=== PATIENT | female | born 1945 | race Caucasian/White ===

== ENCOUNTER → 2016-05-12 | Outpatient (CLI) | payer BC ==
[~2016-05-12] MED LIST: BNC/40 PO; BROM0.07 OPL; MULT-506 PO; PRED1SUS3 OPL; PRT/20 PO; TRIATAB3 PO
[2016-05-12 10:23] LABS: BASO % 0.3 %; BASO ABS # 0.02 K/uL (0-0.2); COMPLETE YES; EOS % 2.3 %; HEMATOCRIT 38.7 % (37-47); IG% 0.9 %; LYMPH % 22.1 %; LYMPH ABS # 1.42 K/uL (1.2-3.4); MEAN CELL VOLUME 90.6 fL (80-100); MEAN CORPUSCULAR HEMOGLOBIN 30.7 pg (25-34); MEAN CORPUSCULAR HGB CONC 33.9 g/dl (32-36); MEAN PLATELET VOLUME 9.9 fL (7.4-10.4); NEUT % 65.4 %; PLATELET COUNT 272 K/uL (130-400); RED BLOOD COUNT 4.27 M/uL (4.2-5.4); WHITE BLOOD COUNT 6.43 K/uL (4.8-10.8)
[2016-05-12 10:46] LABS: ALT/SGPT 30 U/L (12-78); AST/SGOT 28 U/L (15-37); BLOOD UREA NITROGEN 29 mg/dl (7-18); BUN/CREATININE RATIO 23.9 (10-20); CALCIUM 10.3 mg/dl (8.5-10.1); CARBON DIOXIDE 27 mmol/L (21-32); CHLORIDE 104 mmol/L (98-107); GLUCOSE 83 mg/dl (70-99); MAGNESIUM 1.7 mg/dl (1.8-2.4); POTASSIUM 4.1 mmol/L (3.5-5.1); SODIUM 142 mmol/L (136-145)
[2016-05-12 11:59] LABS: ALB/GLOB RATIO 1.2 (0.9-2); ALKALINE PHOSPHATASE 53 U/L (45-117); CHOLESTEROL 202 mg/dl (0-200); CHOLESTEROL/HDL RATIO 3.7; HDL CHOLESTEROL 54 mg/dl; LDL CHOLESTEROL CALCULATED 115 mg/dl; TRIGLYCERIDES 165 mg/dl (0-150); VERY LOW DENSITY LIPOPROT CALC 33 mg/dl
== END | disposition home or self-care (01) ==
LOC: C.LAB 08:56
PROVIDERS: ATTEND Nurse Practitioner Family
DX: I10 Essential (primary) hypertension (principal); M85.80 Other specified disorders of bone density and structure, unspecified site; K21.0 Gastro-esophageal reflux disease with esophagitis; E78.00 Pure hypercholesterolemia, unspecified

== ENCOUNTER → 2016-09-06 | Day surgery (SDC) | payer BC ==
[2016-08-05 13:38] VITALS: Ht 165.1 cm; Wt 68.2 kg
[~2016-09-06] VITALS: Ht 165.1 cm; Wt 68.2 kg
[~2016-09-06] MED LIST changes: +500ML BSS 0.3ML EPI 1:1000PF IRRIG ONE; +ACETAMINOPHEN 325 MG TAB PO PRN; +AMVISC PLUS 0.8ML SYRINGE INT OCU ONE; +BSS FLUSH ONE; +EpINEphrine INJ 1MG/ML AMP 1 MG/ML AMP ONE; +LACTATED RINGER'S 1000ML 500 ML IV SCH; +LIDOCAINE 3.5% OPH GEL PER APPLICATION CHARGE ONE; +LIDOCAINE HCL 1% MPF 2 ML VIAL ONE; +MIDAZOLAM HCL 1 MG/ML 2ML VIAL ONE; +OCUCOAT 1 ML SOLN IO ONE; +POVIDONE-IODINE OP SOLN 30 ML BTL ONE; +PROPARACAINE 0.5% OP SOLN PER DROP CHARGE OPL SCH; +TOBRAMYCIN/DEXAMETHASONE OPH OINT PER APPLN CHARGE ONE
[2016-09-06] MEDS: PHENYLEPHRINE HCL 2.5% OP SOLN PER DROP CHARGE OPL SCH ×2 (07:34→07:39)
[2016-09-06] MEDS: TROPICAMIDE 1% OP SOLN PER DROP CHARGE OPL SCH ×2 (07:35→07:39)
[2016-09-06] MEDS: CYCLOPENTOLATE HCL 1% OP SOLN PER DROP CHARGE OPL SCH ×2 (07:36→07:40)
[2016-09-06] MEDS: KETOROLAC 0.5% OP SOLN PER DROP CHARGE OPL SCH ×2 (07:36→07:41)
[2016-09-06] MEDS: GATIFLOXACIN OP SOLN PER DROP CHARGE OPL SCH ×2 (07:37→07:47)
--- NOTE | 2016-09-06 07:47 | History & Physical Bridge - [place] ---
H&P Re-Evaluation Bridge Note: I have examined the patient, reviewed the History & Physical and in the interval since the performance of the History & Physical I have noted the following changes of clinical significance: No changes noted
--- NOTE | 2016-09-06 08:29 | Discharge Instructions-SurgCtr ---
Discharge Instructions Date of Service September 06, 2016. Visit Reason for Visit: Cataract Left Eye Discharge Discharge Diagnosis / Problem: cataract Discharge Goals Goal(s): Improve function Activity Recommendations Activity Limitations: per Instructions/Follow-up section Anesthesia . Post Anesthesia Instructions: If you have had General Anesthesia or IV Sedation: * Do not drive today. * Resume driving when surgeon permits. * Do not make important decisions or sign legal documents today. * Call surgeon for: 1. Temperature elevations greater than 101 degrees F. 2. Uncontrollable pain. 3. Excessive bleeding. 4. Persistent nausea and vomiting. 5. Medication intolerance (nausea, vomiting or rash). * For nausea and vomiting use only clear liquids such as: tea, soda, bouillon until nausea subsides, then gradually increase diet as tolerated. * If you have any concerns or questions, call your surgeon's office. If physician is unavailable and it is an emergency, call 911 or go to the nearest emergency room. . Instructions / Follow-Up Instructions / Follow-Up ACTIVITY RECOMMENDATIONS: * No strenuous lifting, jogging or running for 4 days * No swimming or yard work for 1 week. * Limited bending is permitted, such as putting on shoes. RETURN TO SCHOOL/WORK: No work until seen by physician in office. MEDICATIONS: Resume previous medications unless instructed otherwise by your surgeon. This includes eye drops for glaucoma. Zymaxid/Gatifloxacin (shields cap) - one drop every 2 hours until bedtime Nevanac/Ilevro/Prolensa/Ketorolac (marti cap) - one drop every 4 hours until bedtime Prednisolone (white/pink cap, SHAKE WELL) - one drop every 2 hours until bedtime Starting tomorrow - all 3 drops every 4 hours until seen in the office Optive drops - as needed for discomfort SPECIAL CARE INSTRUCTIONS: * Wear eyeshield when sleeping, for four nights. * You may wear your own glasses or sunglasses while awake. * You may read or watch TV * You may shower and wash your face, but be gentle around the eye and pat dry. * Blurry vision and mild irritation are normal. * Call office if pain is more severe or vision becomes dark at . FOLLOW UP VISIT: Follow-up with Dr Solomon tomorrow. Diet Recommendations Home Diet: resume previous diet Procedures Procedures Performed: Left Cataract Phacoemulsification With Intraocular Lens Implant Pending Studies Studies pending at discharge: no Medical Emergencies . Who to Call and When: Medical Emergencies: If at any time you feel your situation is an emergency, please call 911 immediately. . Non-Emergent Contact Non-Emergency issues call your: Spinning Operator . . "Provider Documentation" section prepared by Hector Solomon. .
--- NOTE | 2016-09-06 08:29 | [facility] Operative Report ---
Operative Report Date of Service September 06, 2016. Operative Report 1. PREOPERATIVE DIAGNOSIS: Cataract of the left eye. 2. POSTOPERATIVE DIAGNOSIS: Same. 3. PROCEDURE: Phacoemulsification with intraocular lens implantation of the left eye. SURGEON: Dr. Hector Solomon. ANESTHESIA: Topical Lidocaine gel, 1% Non- Preserved intracameral Lidocaine, and monitored intravenous sedation. INDICATIONS FOR THE PROCEDURE: The patient is a 70 - year-old female with a history of cataract of the left eye causing significant visual impairment. The details of the proposed procedure were explained to the patient who asked appropriate questions and following discussion of all risks, benefits and alternatives agreed to have the procedure done. 4. OPERATION AND FINDINGS: DESCRIPTION OF PROCEDURE: After informed consent was obtained, the patient was brought to the Operating Room at the [facility]. The patient was placed in a supine position and then the left eye was prepped and draped in the usual sterile fashion for intraocular surgery. A drop of topical Lidocaine gel was placed in the operative eye. A wire lid speculum was then placed in the fornices. A corneal paracentesis was then created temporally. The Non-Preserved Lidocaine was then instilled into the anterior chamber. The anterior chamber was then pressurized with viscoelastic. A 2.0 mm clear corneal incision was then created temporally. A cystotome was inserted into the anterior chamber and used to create a tear in the anterior lens capsule. This capsular tear was then used to create a small flap and the flap was dragged in a counterclockwise direction in order to create a continuous curvilinear capsulorrhexis. Hydrodissection was accomplished with balanced salt solution. Phacoemulsification of the lens nucleus was then performed in a standard [id number]-xaxprmo technique. The phaco time was 22 seconds with an average power of 9 %. The remaining cortical material was removed using irrigation aspiration. The capsular bag was then filled with viscoelastic. A [employer]ch [employer] Lomb MI60L +20.5 diopters lens was then loaded into the injector and injected into the capsular bag. The remaining viscoelastic was removed with the irrigation aspiration handpiece. The wound was hydrated and then checked and found to be watertight. The intraocular pressure was checked and found to be adequate. The wire lid speculum was removed and the patient's face was cleaned and dried. TobraDex ointment was placed in the inferior fornix. The patient was discharged to the Recovery Room having tolerated the procedure well. There were no complications. The patient will be seen tomorrow in the office for follow-up. I attest to the content of the Intraoperative Record and any orders documented therein. Any exceptions are noted below.
[2016-09-06 08:30] VITALS: TEMP 36.8
--- NOTE | 2016-09-06 08:47 | Anesthesia Progress Nt - [facility] ---
Anesthesia Post Op Note Date & Time September 06, 2016 at 08:47 Vital Signs Pain Intensity: 0 Vital Signs Past 12 Hours Date Time Temp Pulse Resp B/P Pulse Ox O2 Delivery O2 Flow Rate FiO2 09/06/16 08:30 36.8 76 24 108/70 96 Room Air 09/06/16 07:22 36.6 77 16 112/72 98 Room Air Notes Mental Status: alert / awake / arousable, participated in evaluation Pt Amnestic to Procedure: No (recall as expected) Nausea / Vomiting: adequately controlled Pain: adequately controlled Airway Patency, RR, SpO2: stable & adequate BP & HR: stable & adequate Hydration State: stable & adequate Anesthetic Complications: no major complications apparent Pt doing well.
[2016-09-06 08:51] VITALS: BP 101/66; PULSE 80; O2SAT 97
== END | disposition home or self-care (01) ==
LOC: X.SURG 07:14
PROVIDERS: ATTEND Ophthalmology
DX: H26.9 Unspecified cataract (principal); K21.0 Gastro-esophageal reflux disease with esophagitis; K44.9 Diaphragmatic hernia without obstruction or gangrene; E78.00 Pure hypercholesterolemia, unspecified; I10 Essential (primary) hypertension; M85.80 Other specified disorders of bone density and structure, unspecified site

== ENCOUNTER → 2016-09-27 | Day surgery (SDC) | payer BC ==
[2016-09-20 10:56] VITALS: Ht 165.1 cm; Wt 68.2 kg
[~2016-09-27] VITALS: Ht 165.1 cm; Wt 68.2 kg
[~2016-09-27] MED LIST changes: +ATROPINE SULFATE 0.1 MG/ML 5ML SYR IV PRN; +EpHEDrine SULFATE INJ 50 MG/ML AMP IV PRN; -PROPARACAINE 0.5% OP SOLN PER DROP CHARGE OPL SCH; +PROPARACAINE 0.5% OP SOLN PER DROP CHARGE OPR SCH
[2016-09-27] MEDS: PHENYLEPHRINE HCL 2.5% OP SOLN PER DROP CHARGE OPR SCH ×2 (07:52→07:57)
[2016-09-27] MEDS: TROPICAMIDE 1% OP SOLN PER DROP CHARGE OPR SCH ×2 (07:53→07:58)
[2016-09-27] MEDS: CYCLOPENTOLATE HCL 1% OP SOLN PER DROP CHARGE OPR SCH ×2 (07:54→07:59)
[2016-09-27] MEDS: KETOROLAC 0.5% OP SOLN PER DROP CHARGE OPR SCH ×2 (07:55→08:00)
[2016-09-27] MEDS: GATIFLOXACIN OP SOLN PER DROP CHARGE OPR SCH ×2 (07:56→08:06)
--- NOTE | 2016-09-27 08:59 | [facility] Operative Report ---
Operative Report Date of Service September 27, 2016. Operative Report 1. PREOPERATIVE DIAGNOSIS: Cataract of the right eye. 2. POSTOPERATIVE DIAGNOSIS: Same. 3. PROCEDURE: Phacoemulsification with intraocular lens implantation of the right eye. SURGEON: Dr. Hector Solomon. ANESTHESIA: Topical Lidocaine gel, 1% Non- Preserved intracameral Lidocaine, and monitored intravenous sedation. INDICATIONS FOR THE PROCEDURE: The patient is a 71 - year-old female with a history of cataract of the right eye causing significant visual impairment. The details of the proposed procedure were explained to the patient who asked appropriate questions and following discussion of all risks, benefits and alternatives agreed to have the procedure done. 4. OPERATION AND FINDINGS: DESCRIPTION OF PROCEDURE: After informed consent was obtained, the patient was brought to the Operating Room at the [facility]. The patient was placed in a supine position and then the right eye was prepped and draped in the usual sterile fashion for intraocular surgery. A drop of topical Lidocaine gel was placed in the operative eye. A wire lid speculum was then placed in the fornices. A corneal paracentesis was then created temporally. The Non-Preserved Lidocaine was then instilled into the anterior chamber. The anterior chamber was then pressurized with viscoelastic. A 2.0 mm clear corneal incision was then created temporally. A cystotome was inserted into the anterior chamber and used to create a tear in the anterior lens capsule. This capsular tear was then used to create a small flap and the flap was dragged in a counterclockwise direction in order to create a continuous curvilinear capsulorrhexis. Hydrodissection was accomplished with balanced salt solution. Phacoemulsification of the lens nucleus was then performed in a standard [id number] technique. The phaco time was 24 seconds with an average power of 9 %. The remaining cortical material was removed using irrigation aspiration. The capsular bag was then filled with viscoelastic. A Bausch [employer] Lomb MI60L +19.5 diopters lens was then loaded into the injector and injected into the capsular bag. The remaining viscoelastic was removed with the irrigation aspiration handpiece. The wound was hydrated and then checked and found to be watertight. The intraocular pressure was checked and found to be adequate. The wire lid speculum was removed and the patient's face was cleaned and dried. TobraDex ointment was placed in the inferior fornix. The patient was discharged to the Recovery Room having tolerated the procedure well. There were no complications. The patient will be seen tomorrow in the office for follow-up. I attest to the content of the Intraoperative Record and any orders documented therein. Any exceptions are noted below.
--- NOTE | 2016-09-27 08:59 | Discharge Instructions-SurgCtr ---
Discharge Instructions Date of Service September 27, 2016. Visit Reason for Visit: Cataract Right Eye Discharge Discharge Diagnosis / Problem: cataract Discharge Goals Goal(s): Improve function Activity Recommendations Activity Limitations: per Instructions/Follow-up section Anesthesia . Post Anesthesia Instructions: If you have had General Anesthesia or IV Sedation: * Do not drive today. * Resume driving when surgeon permits. * Do not make important decisions or sign legal documents today. * Call surgeon for: 1. Temperature elevations greater than 101 degrees F. 2. Uncontrollable pain. 3. Excessive bleeding. 4. Persistent nausea and vomiting. 5. Medication intolerance (nausea, vomiting or rash). * For nausea and vomiting use only clear liquids such as: tea, soda, bouillon until nausea subsides, then gradually increase diet as tolerated. * If you have any concerns or questions, call your surgeon's office. If physician is unavailable and it is an emergency, call 911 or go to the nearest emergency room. . Instructions / Follow-Up Instructions / Follow-Up ACTIVITY RECOMMENDATIONS: * No strenuous lifting, jogging or running for 4 days * No swimming or yard work for 1 week. * Limited bending is permitted, such as putting on shoes. RETURN TO SCHOOL/WORK: No work until seen by physician in office. MEDICATIONS: Resume previous medications unless instructed otherwise by your surgeon. This includes eye drops for glaucoma. Zymaxid/Gatifloxacin (shields cap) - one drop every 2 hours until bedtime Nevanac/Ilevro/Prolensa/Ketorolac (marti cap) - one drop every 4 hours until bedtime Prednisolone (white/pink cap, SHAKE WELL) - one drop every 2 hours until bedtime Starting tomorrow - all 3 drops every 4 hours until seen in the office Optive drops - as needed for discomfort SPECIAL CARE INSTRUCTIONS: * Wear eyeshield when sleeping, for four nights. * You may wear your own glasses or sunglasses while awake. * You may read or watch TV * You may shower and wash your face, but be gentle around the eye and pat dry. * Blurry vision and mild irritation are normal. * Call office if pain is more severe or vision becomes dark at . FOLLOW UP VISIT: Follow-up with Dr Solomon tomorrow. Diet Recommendations Home Diet: resume previous diet Procedures Procedures Performed: Right Cataract Phacoemulsification With Intraocular Lens Implant Pending Studies Studies pending at discharge: no Medical Emergencies . Who to Call and When: Medical Emergencies: If at any time you feel your situation is an emergency, please call 911 immediately. . 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 . "Provider Documentation" section prepared by Hector Solomon. .
[2016-09-27 09:00] VITALS: TEMP 36.7
--- NOTE | 2016-09-27 09:14 | Anesthesia Progress Nt - [facility] ---
Anesthesia Post Op Note Date & Time September 27, 2016 at 09:14 Vital Signs Pain Intensity: 0 Vital Signs Past 12 Hours Date Time Temp Pulse Resp B/P Pulse Ox O2 Delivery O2 Flow Rate FiO2 09/27/16 09:00 36.7 76 16 102/68 94 Room Air 09/27/16 07:45 36.9 75 16 117/76 97 Room Air Notes Mental Status: alert / awake / arousable, participated in evaluation Pt Amnestic to Procedure: Yes Nausea / Vomiting: adequately controlled Pain: adequately controlled Airway Patency, RR, SpO2: stable & adequate BP & HR: stable & adequate Hydration State: stable & adequate Anesthetic Complications: no major complications apparent
[2016-09-27 09:25] VITALS: BP 108/76; PULSE 67; O2SAT 97
== END | disposition home or self-care (01) ==
LOC: X.SURG 07:37
PROVIDERS: ATTEND Ophthalmology
DX: H26.9 Unspecified cataract (principal); I10 Essential (primary) hypertension; E78.00 Pure hypercholesterolemia, unspecified; E83.42 Hypomagnesemia; E83.52 Hypercalcemia; K21.0 Gastro-esophageal reflux disease with esophagitis; K44.9 Diaphragmatic hernia without obstruction or gangrene; M85.80 Other specified disorders of bone density and structure, unspecified site; Z78.0 Asymptomatic menopausal state; Z79.899 Other long term (current) drug therapy

== ENCOUNTER → 2016-10-27 | Outpatient (CLI) | payer BC ==
[~2016-10-27] MED LIST changes: -500ML BSS 0.3ML EPI 1:1000PF IRRIG ONE; -ACETAMINOPHEN 325 MG TAB PO PRN; -AMVISC PLUS 0.8ML SYRINGE INT OCU ONE; -ATROPINE SULFATE 0.1 MG/ML 5ML SYR IV PRN; -BSS FLUSH ONE; -EpHEDrine SULFATE INJ 50 MG/ML AMP IV PRN; -EpINEphrine INJ 1MG/ML AMP 1 MG/ML AMP ONE; -LACTATED RINGER'S 1000ML 500 ML IV SCH; -LIDOCAINE 3.5% OPH GEL PER APPLICATION CHARGE ONE; -LIDOCAINE HCL 1% MPF 2 ML VIAL ONE; -MIDAZOLAM HCL 1 MG/ML 2ML VIAL ONE; -OCUCOAT 1 ML SOLN IO ONE; -POVIDONE-IODINE OP SOLN 30 ML BTL ONE; -PROPARACAINE 0.5% OP SOLN PER DROP CHARGE OPR SCH; -TOBRAMYCIN/DEXAMETHASONE OPH OINT PER APPLN CHARGE ONE
[2016-10-27 10:00] LABS: BLOOD UREA NITROGEN 26 mg/dl (7-18); BUN/CREATININE RATIO 19.7 (10-20); CALCIUM 9.5 mg/dl (8.5-10.1); CARBON DIOXIDE 27 mmol/L (21-32); CHLORIDE 106 mmol/L (98-107); CHOLESTEROL 233 mg/dl (0-200); CHOLESTEROL/HDL RATIO 5.7; GLUCOSE 81 mg/dl (70-99); HDL CHOLESTEROL 41 mg/dl; LDL CHOLESTEROL CALCULATED 150 mg/dl; POTASSIUM 3.6 mmol/L (3.5-5.1); SODIUM 140 mmol/L (136-145); TRIGLYCERIDES 208 mg/dl (0-150); VERY LOW DENSITY LIPOPROT CALC 42 mg/dl
== END | disposition home or self-care (01) ==
LOC: C.LAB 08:49
PROVIDERS: ATTEND Nurse Practitioner Family
DX: E78.00 Pure hypercholesterolemia, unspecified (principal); E83.42 Hypomagnesemia

== ENCOUNTER → 2017-02-20 | Outpatient (CLI) | payer BC ==
--- NOTE | 2017-02-20 15:36 | MAMMOGRAPHY REPORT ---
BILATERAL DIGITAL SCREENING MAMMOGRAM WITH CAD: 02/20/2017 CLINICAL HISTORY: Routine screening. Patient has no complaints. TECHNIQUE: Bilateral CC and MLO views were obtained. Current study was also evaluated with a Compute r Aided Detection (CAD) system. COMPARISON: Comparison is made to exams dated: 02/19/2016 mammogram, 02/16/2015 mammogram, 4 mammogram, 01/30/2013 mammogram, 11/23/2010 mammogram - [facility], and 09/04/2007. BREAST COMPOSITION: There are scattered areas of fibroglandular density in both breasts. FINDINGS: There are multiple bilateral groupings of coarse heterogeneous microcalcifications that de monstrate interval coarsening comparing to prior mammograms, confirming benignity. There is stable a symmetry in the medial right breast and a stable metallic biopsy marker in the medial left breast. No new suspicious mass, architectural distortion or cluster of microcalcifications is seen. IMPRESSION: ACR BI-RADS CATEGORY 2: BENIGN There is no mammographic evidence of malignancy. A 1 year screening mammogram is recommended. The pa tient will receive written notification of the results. Approximately 10% of breast cancers are not detected with mammography. A negative mammographic report should not delay biopsy if a clinically suggestive mass is present. Smita Velásquez M.D. ay/:02/20/2017 15:11:54 Rabbit Dresser: Aydee BRANTLEY(R)(M), [facility] letter sent: Normal 1/2 BI-RADS Code: ACR BI-RADS Category 2: Benign
== END | disposition home or self-care (01) ==
LOC: C.MAMM 09:26
PROVIDERS: ATTEND Nurse Practitioner Family
DX: Z12.31 Encounter for screening mammogram for malignant neoplasm of breast (principal)

== ENCOUNTER 2022-12-15 00:16 | Inpatient (IN) ==
[2022-12-15] MEDS: SODIUM CHLORIDE 0.9% 1000ML 1,000 ML IV SCH ×3 (00:57→08:11)
[2022-12-15] MEDS ORDERED: ACETAMINOPHEN 1000 MG/100 ML IV IV ONE (01:04)
[2022-12-15] MEDS ORDERED: ACETAMINOPHEN 1,000 MG/100 ML VIAL IV STA (01:05)
[2022-12-15 01:18] LABS: Hematocrit (blood only) 36.3 % (37.0-47.0); Hemoglobin 12.7 g/dl (12.0-16.0); Mean Corpuscular Hemoglobin 31.6 pg (25.0-34.0); Mean Corpuscular Volume 90.3 fL (80.0-100.0); Mean Platelet Volume 10.6 fL (9.4-12.4); Platelet Count 193 K/uL (130-400); RDW Coefficient of Variation 13.6 % (11.5-14.5); RDW Standard Deviation 44.7 fL (36.4-46.3); Red Blood Count 4.02 M/uL (4.20-5.40); White Blood Count 12.34 K/ul (4.8-10.8)
--- NOTE | 2022-12-15 01:20 | Emergency Department Note ---
Impression & Plan Fatigue, Cough, Influenza, Dehydration ED Provider Note ED Provider Note NAME: CONCHA GRAHAM AGE:77 SEX: Female : 1945 ARRIVES VIA: EMS INFORMANT: Patient ED PROVIDER(s): Jennifer Carrillo DO CHIEF COMPLAINT: Fatigue, cough, decreased appetite HPI: This is a 77-year-old female presents to the emergency department via EMS after 1 week of URI symptoms with increased fatigue and decreased appetite. Patient was recently on a bus trip in [place] with her son. She states multiple people on the same trip all became ill as well. She states her symptoms began last week with congestion, cough, and she thought she was developing a "head cold". She states she then began to notice increased fatigue and decreased appetite and she began to have an increased cough and felt as though her symptoms were "moving into her chest". No history of smoking or asthma. She states the cough sounds loose but has mostly been nonproductive. She denies any accompanying shortness of breath or chest pain. She states malgorzata pite the decreased appetite she has not had any overt vomiting or abdominal pain. She did have some mild diarrhea. No rash or sores, no leg swelling. No fevers or chills. PAST MEDICAL HISTORY:See Below PAST SURGICAL HISTORY:See Below FAMILY HISTORY:See Below SOCIAL HISTORY:See Below HOME MEDICATIONS:See Below ALLERGIES:See Below VITALS:See Below PHYSICAL EXAMINATION: GENERAL: alert, unwell appearing, well nourished, no distress, non-toxic EYE EXAM: normal conjunctiva, PERRL and EOM's grossly intact OROPHARYNX: no exudate, no erythema, lips, buccal mucosa, and tongue normal and mucous membranes are dry NECK: supple, no nuchal rigidity, no adenopathy, non-tender LUNGS: Clear but decreased to auscultation. Normal chest wall mechanics, no w/r, faint rhonchi noted at bilateral bases, frequent coarse cough noted during exam HEART: no murmurs, S1 normal and S2 normal ABDOMEN: abdomen soft, non-tender, normo-active bowel sounds, no masses, no rebound or guarding. BACK: Back is symmetrical on inspection and there is no deformity, no midline tenderness, no CVA tenderness. SKIN: no rashes, petechiae, orbruising UPPER EXTREMITIES: upper extremities are grossly normal. FROM, nml pulses b/l. LOWER EXTREMITIES: No pitting edema. FROM, nml pulses b/l. NEURO EXAM: Normal sensorium, cranial nerves II-XII grossly intact, normal speech, no facial droop,nogross weakness of arms, no gross weakness of legs. Gross sensation intact. No ataxia. Vital Signs: reviewed and remarkable Differential Diagnosis: Viral syndrome, sinusitis, bronchitis, pneumonia, electrolyte abnormalities, MELINDA, dehydration, ACS, pericarditis/myocarditis, as well as other pathologies. MEDICAL DECISION MAKING: This is a 77-year-old female presents emergency department due to concern for fatigue, myalgias, fevers, decreased appetite, and cough. Vital signs stable on arrival. Labs drawn and sent, IV established, EKG and chest x-ray performed at bedside interpreted by me and patient monitored on telemetry. She was started on gentle IV fluid rehydration and given IV Tylenol, IV famotidine, Tessalon Pe rles. Patient was noted to have room air sats around 90% and did feel more comfortable with addition of supplemental oxygen via nasal cannula at 2 L/min. Patient's labs reassuring, chest x-ray without any acute findings, nasal swab ultimately positive for influenza A. I suspect this is the ultimate cause of the patient's evolving symptoms over the course of the last week. Patient did have several episodes of hypoxia into the upper 80s. Due to concern for respiratory involvement and need for supplemental oxygen, case discussed with hospitalist for additional evaluation and management. I do not suspect CHF, PE, or secondary bacterial infection. Patient noted to have slight elevation of her creatinine, likely secondary to dehydration. She was also noted to have a mildly elevated troponin level. I do not suspect primary ACS given other findings tonight. No acute EKG changes and no overt chest pain reported. Consultation(s): [] ER Treatment Provided: See below 0344: Patient updated on results. She states she does feel slightly improved with the IV fluids and is tolerating sips by mouth. 0525: Patient still with conversational dyspnea and hypoxia. Patient was noted to be hypoxic laying down additionally and was placed on 2 L. Diagnostics Interpreted By Me: -ECG: Normal sinus at 78, normal axis, normal intervals, no acute ST/T wave changes -Cardiac Monitoring: An order was placed for continuous cardiac monitoring. The monitor shows a rate of 82 with normal sinus rhythm. -Laboratory studies: As stated above and show below. -Imaging studies: X-ray Chest: A single view study of the chest was reviewed and was negative for cardiomegaly, focal infiltrate, effusion, pulmonary edema, or wide mediastinum. Triage Nursing Note Reviewed Prior/Outside Records Reviewed Procedures: [] Critical Care: [] Past Med/Surg History Medical History Chronic reflux esophagitis Encounter for counseling for travel Hypercholesterolemia Hypertension Osteopenia Surgical History History of appendectomy History of removal of cyst right breast Family History Father Lung cancer Other Primary adenocarcinoma of adrenal gland Denies family history of Ovarian cancer Prostate cancer Myocardial infarction Breast cancer Colorectal cancer Social History Smoking Status: Never smoker Second Hand Exposure: Yes; Do You Dip or Chew Tobacco: No; Hx Alcohol Use: Yes Alcohol type: hard liquor Hx Substance Use: No Preferred Language: Sudanese Communication Ability: Effective Visual Impairment: No Limitations Hearing Ability: Normal Wireless Sales Representative Required: No Beliefs That Will Affect Care: None marital status: Single Current Living Situation: Family Current Living Situation Comment: w/ son and brother current occupational status: retired How many Children do You have: 3 Feels Safe at Home: Yes Childhood Exposure to Second-Hand Smoke: No Diet: regular caffeine: Yes Dental Care, Regularly: Yes Physical Activity Frequency: Daily Seatbelt Use: always Sunscreen Use: Yes Assistive Devices: Glasses Allergies Allergies Allergy/AdvReac Type Severity Reaction Status Date / Time ciprofloxacin Allergy Unknown Unknown Verified 09/14/22 11:04 codeine AdvReac Mild VOMITING Verified 09/14/22 11:04 Home Meds Previous Rx's Medication Instructions Recorded omega-3 fatty acids 1,000 mg 1,000 mg PO TID #90 caps 11/21/18 capsule (Fish Oil Concentrate) meclizine 25 mg tablet 25 mg PO TID PRN dizziness #15 tabs 02/11/20 diph,pertuss(acel),tet vac(PF) 2 0.5 ml IM ONCE #0.5 mL 07/29/21 Lf-(2.5-5-3-5mcg)-5 Lf/0.5 mL IM syringe (Adacel (Tdap Adolesn/Adult)(PF)) pantoprazole 40 mg tablet,delayed 40 mg PO DAILY #90 tabs 07/29/21 release varicella-zoster glycoE [id number] 0.5 ml IM ONCE #1 ea 07/29/21 adj(PF) 50 mcg/0.5 mL IM susp, kit (Shingrix (PF)) metronidazole 250 mg tablet 250 mg PO TID 10 days #30 tabs 09/14/22 potassium chloride 10 mEq 10 meq PO DAILY #90 caps 09/14/22 capsule,extended release atorvastatin 10 mg tablet 10 mg PO QPM #90 tabs 11/08/22 losartan 50 mg tablet 50 mg PO DAILY #90 tabs 11/08/22 triamterene 37.5 1 cap PO QAM #90 caps 11/08/22 mg-hydrochlorothiazide 25 mg capsule Results & Data (ED) Vital Signs Vital Signs - 24 hr 12/15/22 03:00 12/15/22 03:30 12/15/22 04:00 Temperature Temperature Source Pulse Rate 70 68 71 Pulse Rate from SpO2 Sensor 70 68 72 Respiratory Rate 23 21 25 H Blood Pressure 128/60 112/65 110/59 L Blood Pressure Mean 82 80 76 Pulse Oximetry 96 96 90 Oxygen Delivery Method Oxygen Flow Rate Oxygen Flow Rate - Titration Pulse Oximetry Post Tiitration 12/15/22 04:40 12/15/22 05:00 12/15/22 04:00 Temperature 37 C Temperature Source Oral Pulse Rate 70 Pulse Rate from SpO2 Sensor Respiratory Rate Blood Pressure Blood Pressure Mean Pulse Oximetry 89 L Oxygen Delivery Method Room Air Oxygen Flow Rate 0 Oxygen Flow Rate - Titration 2 Pulse Oximetry Post Tiitration 92 12/15/22 04:30 12/15/22 05:00 12/15/22 05:30 Temperature Temperature Source Pulse Rate 69 73 Pulse Rate from SpO2 Sensor 69 71 Respiratory Rate 23 37 H Blood Pressure 112/66 114/58 L 95/62 L Blood Pressure Mean 81 76 74 Pulse Oximetry 94 94 Oxygen Delivery Method Oxygen Flow Rate Oxygen Flow Rate - Titration Pulse Oximetry Post Tiitration 12/15/22 05:30 12/15/22 06:00 12/15/22 06:00 Temperature Temperature Source Pulse Rate 70 73 Pulse Rate from SpO2 Sensor 70 73 Respiratory Rate 24 18 Blood Pressure 95/49 L Blood Pressure Mean 56 Pulse Oximetry 93 92 Oxygen Delivery Method Oxygen Flow Rate Oxygen Flow Rate - Titration Pulse Oximetry Post Tiitration Laboratory Data 12/15/22 Unknown 12/15/22 Unknown Lab Results 12/15/22 Range/Units 04:07 Sodium 135 L (136-145) mmol/L Potassium 3.5 (3.5-5.1) mmol/L Chloride 101 (98-107) mmol/L Carbon Dioxide 23 (21-32) mmol/L Anion Gap 11 (3-11) BUN 43 H (6-23) mg/dl Creatinine 1.30 H (0.6-1.2) mg/dl Est Cr Clr Drug Dosing 31.6 ml/min Est GFR ( Amer) 45.2 ml/min Est GFR (Non-Af Amer) 39.0 ml/min BUN/Creatinine Ratio 33.1 H (10-20) Glucose 86 (70-99(Fasting)) mg/dl Calcium 8.7 (8.6-10.3) mg/dl Troponin I High Sens 19.9 H (0-14) pg/ml Administered Medications Albuterol (Albut/Ipratrop 3mg/0.5mg Neb 3 Ml Vial) 3 ml NEB QIDR [facility]; Protocol Stop: 01/14/23 11:11 Last Admin: 12/15/22 20:05 Dose: 3 ml Documented By: Admin: 12/15/22 14:53 Dose: 3 ml Documented By: Admin: 12/15/22 12:08 Dose: 3 ml Documented By: YADI Atorvastatin Calcium (Atorvastatin 10 Mg Tab) 10 mg PO QPM [facility] Stop: 01/14/23 20:59 Last Admin: 12/15/22 23:02 Dose: 10 mg Documented By: NEVIN Guaifenesin/Dextromethorphan (Guaifenesin/Dextrom Syrup 200mg/20mg 10ml [facility] [place] 10 ml PO Q6H PRN PRN Reason: Cough Stop: 01/14/23 11:11 Last Admin: 12/15/22 23:08 Dose: 10 ml Documented By: NEVIN Dexamethasone 4 mg/ Syringe 1 mls @ 1 mls/min IV Q8H [facility] Stop: 01/14/23 10:59 Last Admin: 12/15/22 23:00 Dose: 1 mls/min Documented By: Admin: 12/15/22 11:32 Dose: 1 mls/min Documented By: SHAWNA Potassium Chloride/Sodium Chloride (Normal Saline W/20 Meq Kcl) 20 meq in 1,000 mls @ 80 mls/hr IV .[id number] ANGELES Stop: 01/14/23 11:44 Last Admin: 12/16/22 02:44 Dose: 80 mls/hr Documented By: Infusion: 12/16/22 00:05 Dose: 80 mls/hr Documented By: Admin: 12/15/22 11:35 Dose: 80 mls/hr Documented By: SHAWNA Discontinued Medications Acetaminophen (Acetaminophen 1000 Mg/100 Ml Iv) Confirm Administered Dose 1,000 mg IV .STK-MED ONE Stop: 12/15/22 01:05 Last Admin: 12/15/22 01:06 Dose: Not Given Documented By: JOSE Benzonatate (Benzonatate 100 Mg Capsule) 100 mg PO NOW ONE Stop: 12/15/22 01:52 Last Admin: 12/15/22 02:17 Dose: 100 mg Documented By: JOSE Dexamethasone (Dexamethasone Sod Inj 4 Mg/Ml Vial) 6 mg IV NOW STA Stop: 12/15/22 06:06 Last Admin: 12/15/22 06:30 Dose: 6 mg Documented By: JOSE Guaifenesin/Dextromethorphan (Guaifenesin/Dextrom Syrup 200mg/20mg 10ml Udc) 10 ml PO NOW STA Stop: 12/15/22 06:15 Last Admin: 12/15/22 06:31 Dose: 10 ml Documented By: JOSE Sodium Chloride (Nss 1000ml) 1,000 mls @ 250 mls/hr IV .Q4H ANGELES Stop: 01/14/23 00:29 Last Infusion: 12/15/22 11:34 Dose: 0 mls/hr Documented By: Admin: 12/15/22 08:11 Dose: 250 mls/hr Documented By: Admin: 12/15/22 06:29 Dose: Not Given Documented By: Infusion: 12/15/22 06:29 Dose: 0 mls/hr Documented By: Admin: 12/15/22 00:57 Dose: 250 mls/hr Documented By: JOSE Acetaminophen (Ofirmev) 1,000 mg in 100 mls @ 400 mls/hr IV NOW STA Stop: 12/15/22 01:19 Last Infusion: 12/15/22 02:18 Dose: 0 mls/hr Documented By: Admin: 12/15/22 01:06 Dose: 400 mls/hr Documented By: JOSE Famotidine (Pepcid 20mg Iv Push) 20 mg in 5 mls @ 2.5 mls/min IV NOW STA Stop: 12/15/22 01:52 Last Admin: 12/15/22 02:18 Dose: 2.5 mls/min Documented By: JOSE Azithromycin 500 mg/ Dextrose 255 mls @ 125 mls/hr IV DAILY ANGELES Stop: 12/22/22 08:59 Last Infusion: 12/15/22 11:37 Dose: 0 mls/hr Documented By: Admin: 12/15/22 08:11 Dose: 125 mls/hr Documented By: GRAEME Pantoprazole Sodium (Pantoprazole 40 Mg Tab) 40 mg PO ONE STA Stop: 12/15/22 11:23 Last Admin: 12/15/22 11:36 Dose: 40 mg Documented By: SHAWNA Discharge Plan Visit Data Chief Complaint: Cough ED Provider: Jennifer Carrillo Discharge Problem: Fatigue, Cough, Influenza, Dehydration Patient Disposition: Admitted As Inpatient Discharge Instructions Interventions: ED Discharge Assessment Last Done: 12/15/22 19:30
[2022-12-15 01:33] LABS: Albumin Globulin Ratio 1.2 (0.9-2); Albumin Level 3.6 gm/dl (3.4-5.0); BUN Creatinine Ratio 32.1 (10-20); Calcium 9.2 mg/dl (8.6-10.3); Creatinine Clr Calc Pharmacy 31.3 ml/min; Est GFR (African American) 44.8 ml/min; Est GFR (Non-African American) 38.6 ml/min; Globulin 3.1 gm/dl (2.5-4.0); Magnesium 1.9 mg/dl (1.7-2.4); Potassium 3.6 mmol/L (3.5-5.1); Total Protein 6.7 gm/dl (6.0-8.3)
[2022-12-15 01:39] LABS: Troponin I High Sensitivity 17.3 pg/ml (0-14)
[2022-12-15 01:47] LABS: Thyroid Stimulating Hormone 7.284 uIu/ml (0.300-4.500)
[2022-12-15] MEDS ORDERED: BENZONATATE 100 MG CAPSULE PO ONE (01:51)
[2022-12-15] MEDS ORDERED: FAMOTIDINE 20MG IV PUSH 20 MG/5 ML SYR IV STA (01:51)
[2022-12-15 02:00] LABS: ALC (manual) 0.62 K/uL (1.2-3.4); ANC (manual) 11.23 K/uL (1.4-6.5); Lymphocytes # (manual) 0.62 K/uL (1.2-3.4); Lymphocytes % (manual) 5 %; Metamyelocytes # (manual) 0.12 K/uL (0-0); Metamyelocytes % (manual) 1 %; Monocytes # (manual) 0.37 K/uL (0.11-0.59); Monocytes % (manual) 3 %; Neutrophils # (manual) 11.23 K/uL (1.40-6.50); Neutrophils % (manual) 91 %
[2022-12-15 02:12] LABS: Adenovirus PCR Not Detected (NotDetected); Bordetella parapertussis PCR Not Detected (NotDetected); Bordetella pertussis PCR Not Detected (NotDetected); Chlamydia pneumoniae PCR Not Detected (NotDetected); Coronavirus 229E PCR Not Detected (NotDetected); Coronavirus CoV-2 (COVID19)PCR Not Detected (NotDetected); Coronavirus HKU1 PCR Not Detected (NotDetected); Coronavirus NL63 PCR Not Detected (NotDetected); Coronavirus OC43PCR Not Detected (NotDetected); Human Metapneumovirus PCR Not Detected (NotDetected); Influenza B PCR Not Detected (NotDetected); Mycoplasma pneumoniae PCR Not Detected (NotDetected); Parainfluenza Virus 1 PCR Not Detected (NotDetected); Parainfluenza Virus 2 PCR Not Detected (NotDetected); Parainfluenza Virus 3 PCR Not Detected (NotDetected); Parainfluenza Virus 4 PCR Not Detected (NotDetected); Respiratory Syncytial VirusPCR Not Detected (NotDetected); Rhinovirus/Enterovirus PCR Not Detected (NotDetected)
[2022-12-15 02:14] LABS: Influenza A (H1 2009) PCR DETECTED (NotDetected)
[2022-12-15 02:22] LABS: T4 Free Thyroxine 1.23 ng/dl (0.61-1.60)
[2022-12-15 04:55] LABS: BUN Creatinine Ratio 33.1 (10-20); Calcium 8.7 mg/dl (8.6-10.3); Creatinine Clr Calc Pharmacy 31.6 ml/min; Est GFR (African American) 45.2 ml/min; Potassium 3.5 mmol/L (3.5-5.1)
[2022-12-15 05:00] LABS: Troponin I High Sensitivity 19.9 pg/ml (0-14)
[2022-12-15] MEDS ORDERED: DEXAMETHASONE SOD INJ 4 MG/ML VIAL IV STA (06:05)
[2022-12-15] MEDS ORDERED: guaiFENesin/DEXTROM SYRUP 200MG/20MG 10ML UDC PO STA (06:14)
[2022-12-15] MEDS ORDERED: traMADol HCL 50 MG TABLET PO PRN (06:30)
--- NOTE | 2022-12-15 06:32 | History & Physical Report ---
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 every 6 hours as needed Albuterol HFA 2 puffs 4 times daily, and every 2 hours as needed Acetaminophen 650 mg by mouth every 6 hours as needed for mild pain or fever Tramadol 50 mg by mouth every 4 hours as needed for moderate pain Influenza isolation/droplet precautions Elevated troponin/hypertension- The patient will be admitted to telemetry for serial cardiac enzymes, serial EKG's, cardiac rhythm monitoring Troponin initially 19.9 with follow-up 17.3 Likely type II supply/demand mismatch Hold losartan, triamterene HCTZ and potassium chloride NSS + KCl 20 mEq at 80 mils per hour GERD- Continue pantoprazole History of Present Illness Chief Complaint: The patient presents to the emergency department via EMS with complaint of 1 week of cough, shortness of breath, headache, generalized fatigue and weakness after returning from a trip to [place], where she was exposed to a number of sick people on the trip Primary Care Provider: Dimitri Pandya, III, ROSEANN The patient is a 77-year-old female with a past medical history including alpha 1 antitrypsin deficiency carrier, female stress incontinence, osteopenia, hypertension, hypercholesterolemia and chronic reflux esophagitis. She had gone on a trip to [place], where she went on the bus drive, and was exposed to a number of people with similar symptoms that she has as noted above. In the emergency department at [facility] this morning, she tested positive for nasal influenza A H1 2009 via PCR. From the ED she received famotidine IV, Tessalon Perles, Tylenol 1 g IV and was started on normal saline at 1050 mils per hour. I have added dexamethasone 6 mg IV and Robitussin-DM 10 mL now, and will continue during admission. Allergies Allergy/AdvReac Type Severity Reaction Status Date / Time ciprofloxacin Allergy Unknown Unknown Verified 09/14/22 11:04 codeine AdvReac Mild VOMITING Verified 09/14/22 11:04 Home Medications Medication Instructions Recorded Confirmed Type omega-3 fatty acids 1,000 mg 1,000 mg PO TID #90 caps 11/21/18 09/14/22 Rx capsule (Fish Oil Concentrate) meclizine 25 mg tablet 25 mg PO TID PRN dizziness #15 tabs 02/11/20 09/14/22 Rx diph,pertuss(acel),tet vac(PF) 2 0.5 ml IM ONCE #0.5 mL 07/29/21 09/14/22 Rx Lf-(2.5-5-3-5mcg)-5 Lf/0.5 mL IM syringe (Adacel (Tdap Adolesn/Adult)(PF)) pantoprazole 40 mg tablet,delayed 40 mg PO DAILY #90 tabs 07/29/21 09/14/22 Rx release varicella-zoster glycoE [id number] 0.5 ml IM ONCE #1 ea 07/29/21 09/14/22 Rx adj(PF) 50 mcg/0.5 mL IM susp, kit (Shingrix (PF)) metronidazole 250 mg tablet 250 mg PO TID 10 days #30 tabs 09/14/22 09/14/22 Rx potassium chloride 10 mEq 10 meq PO DAILY #90 caps 09/14/22 09/14/22 Rx capsule,extended release atorvastatin 10 mg tablet 10 mg PO QPM #90 tabs 11/08/22 Rx losartan 50 mg tablet 50 mg PO DAILY #90 tabs 11/08/22 Rx triamterene 37.5 1 cap PO QAM #90 caps 11/08/22 Rx mg-hydrochlorothiazide 25 mg capsule Past Med/Surg History Medical History Chronic reflux esophagitis Encounter for counseling for travel Hypercholesterolemia Hypertension Osteopenia Surgical History History of appendectomy History of removal of cyst right breast Family History Father Lung cancer Other Primary adenocarcinoma of adrenal gland Denies family history of Ovarian cancer Prostate cancer Myocardial infarction Breast cancer Colorectal cancer Social History Smoking Status: Never smoker Second Hand Exposure: Yes; Do You Dip or Chew Tobacco: No; Hx Alcohol Use: No Hx Substance Use: No Preferred Language: Montserratian Communication Ability: Effective Visual Impairment: No Limitations Hearing Ability: Normal Automobile Mechanic Motor Required: No marital status: Single Current Living Situation: Family Current Living Situation Comment: w/ son and brother current occupational status: retired How many Children do You have: 3 Feels Safe at Home: Yes Childhood Exposure to Second-Hand Smoke: No Diet: regular caffeine: Yes Dental Care, Regularly: Yes Physical Activity Frequency: Daily Seatbelt Use: always Sunscreen Use: Yes Assistive Devices: Glasses Review of Systems Review of Systems: The patient denies chest pain, palpitations, lower extremity swelling, chills, sweats, nausea, vomiting, diarrhea , constipation, abdominal pain, pelvic pain, blood in urine or stool, dysuria, urinary frequency or urgency, memory loss, loss of consciousness, rash, abnormal bruising or bleeding, imbalance, focal weakness, numbness or tingling in arms or legs, back or neck pain, or night sweats. The review of systems is otherwise negative other than for that already noted above, and at least 10 systems have been reviewed. Physical Exam Physical Exam: The patient is awake, alert and oriented 3, looks fatigued and frequent harsh cough, normocephalic and atraumatic, lying in bed and in mild acute distress. HEENT--PERRL, EOMI, mucous membranes and oropharynx dry. Neck--supple. No JVD. No bruits. Thyroid normal, trachea midline, no adenopathy. Heart--normal S1 and S2. No murmurs, rubs or gallops. Lungs--coarse breath sounds bilaterally, right greater than left. Mild respira tory distress, no accessory muscle use. Abdomen--normal bowel sounds and soft. Nontender. Nondistended, no hernias or masses, no organomegaly. Extremities--no cyanosis or clubbing. No edema. Dermatologic--normal skin turgor, normal color, no abnormal lymph nodes, no rash. Neurologic--cranial nerves II through XII grossly intact. Rheumatologic--normal range of motion. Psychiatric--normal affect. Results & Data Results & Data Vital Signs (Past 12 Hours) Vital Signs Temp Pulse Resp BP Pulse Ox O2 Del Method O2 Flow Rate 12/15/22 05:00 89 L Room Air 0 12/15/22 04:40 70 12/15/22 04:00 71 25 H 110/59 L 90 12/15/22 03:30 68 21 112/65 96 12/15/22 03:00 70 23 128/60 96 12/15/22 02:30 69 21 95 12/15/22 02:30 115/76 12/15/22 02:10 75 23 94 12/15/22 02:00 73 22 96 12/15/22 02:00 122/70 12/15/22 01:50 75 21 95 12/15/22 01:40 73 19 95 12/15/22 01:30 74 20 96 12/15/22 01:30 113/74 12/15/22 01:20 79 31 H 95 12/15/22 01:10 76 23 96 12/15/22 01:00 75 21 94 12/15/22 01:00 104/66 12/15/22 00:50 78 23 90 12/15/22 00:40 77 31 H 94 12/15/22 00:30 79 18 91 12/15/22 00:30 113/70 12/15/22 00:23 81 25 H 93 12/15/22 00:23 101/73 12/15/22 00:55 90 Room Air, Nasal Cannula 0 12/15/22 00:23 81 12/15/22 00:20 37.7 C H 80 22 101/73 92 Room Air Laboratory Results Laboratory Results WBC 12.34 K/ul (4.8-10.8) H 12/15/22 Unknown RBC 4.02 M/uL (4.20-5.40) L 12/15/22 Unknown Hgb 12.7 g/dl (12.0-16.0) 12/15/22 Unknown Hct 36.3 % (37.0-47.0) L 12/15/22 Unknown MCV 90.3 fL (80.0-100.0) 12/15/22 Unknown MCH 31.6 pg (25.0-34.0) 12/15/22 Unknown MCHC 35.0 g/dL (32.0-36.0) 12/15/22 Unknown RDW Std Deviation 44.7 fL (36.4-46.3) 12/15/22 Unknown RDW Coeff of Justina 13.6 % (11.5-14.5) 12/15/22 Unknown Plt Count 193 K/uL (130-400) 12/15/22 Unknown MPV 10.6 fL (9.4-12.4) 12/15/22 Unknown Neutrophils % (Manual) 91 % 12/15/22 Unknown Lymphocytes % (Manual) 5 % 12/15/22 Unknown Monocytes % (Manual) 3 % 12/15/22 Unknown Metamyelocytes % (Man) 1 % 12/15/22 Unknown Neutrophils # (Manual) 11.23 K/uL (1.40-6.50) H 12/15/22 Unknown Total Absolute Neuts 11.23 K/uL (1.4-6.5) H 12/15/22 Unknown Lymphocytes # (Manual) 0.62 K/uL (1.2-3.4) L 12/15/22 Unknown Total Abs Lymphocytes 0.62 K/uL (1.2-3.4) L 12/15/22 Unknown Monocytes # (Manual) 0.37 K/uL (0.11-0.59) 12/15/22 Unknown Metamyelocytes # (Man) 0.12 K/uL (0-0) H 12/15/22 Unknown Sodium 137 mmol/L (136-145) 12/15/22 Unknown Potassium 3.6 mmol/L (3.5-5.1) 12/15/22 Unknown Chloride 101 mmol/L (98-107) 12/15/22 Unknown Carbon Dioxide 25 mmol/L (21-32) 12/15/22 Unknown Anion Gap 11 (3-11) 12/15/22 Unknown BUN 42 mg/dl (6-23) H 12/15/22 Unknown Creatinine 1.31 mg/dl (0.6-1.2) H 12/15/22 Unknown Est Cr Clr Drug Dosing 31.3 ml/min 12/15/22 Unknown Est GFR ( Amer) 44.8 ml/min 12/15/22 Unknown Est GFR (Non-Af Amer) 38.6 ml/min 12/15/22 Unknown BUN/Creatinine Ratio 32.1 (10-20) H 12/15/22 Unknown Glucose 87 mg/dl (70-99(Fasting)) 12/15/22 Unknown Calcium 9.2 mg/dl (8.6-10.3) 12/15/22 Unknown Magnesium 1.9 mg/dl (1.7-2.4) 12/15/22 Unknown Total Bilirubin 1.0 mg/dl (0.2-1.0) 12/15/22 Unknown AST 27 U/L (13-39) 12/15/22 Unknown ALT 20 U/L (7-52) 12/15/22 Unknown Alkaline Phosphatase 44 U/L (34-104) 12/15/22 Unknown Troponin I High Sens 17.3 pg/ml (0-14) H 12/15/22 Unknown B-Natriuretic Peptide 34 pg/ml (0-100) 12/15/22 Unknown Total Protein 6.7 gm/dl (6.0-8.3) 12/15/22 Unknown Albumin 3.6 gm/dl (3.4-5.0) 12/15/22 Unknown Globulin 3.1 gm/dl (2.5-4.0) 12/15/22 Unknown Albumin/Globulin Ratio 1.2 (0.9-2) 12/15/22 Unknown Lipase 26 U/L (11-82) 12/15/22 Unknown TSH 7.284 uIu/ml (0.300-4.500) H 12/15/22 Unknown Free T4 1.23 ng/dl (0.61-1.60) 12/15/22 Unknown Nasal Influ A H1 2008 PCR DETECTED (NotDetected) A* 12/15/22 Unknown Adenovirus (PCR) Not Detected (NotDetected) 12/15/22 Unknown B. pertussis DNA (PCR) Not Detected (NotDetected) 12/15/22 Unknown B.parapertussis DNA PCR Not Detected (NotDetected) 12/15/22 Unknown C. pneumoniae DNA (PCR) Not Detected (NotDetected) 12/15/22 Unknown Coronavirus OC43 (PCR) Not Detected (NotDetected) 12/15/22 Unknown Coronavirus HKU1 (PCR) Not Detected (NotDetected) 12/15/22 Unknown Coronavirus 229E (PCR) Not Detected (NotDetected) 12/15/22 Unknown SARS-CoV-2 (PCR) Not Detected (NotDetected) 12/15/22 Unknown Coronavirus NL63 (PCR) Not Detected (NotDetected) 12/15/22 Unknown Human Metapneumovir PCR Not Detected (NotDetected) 12/15/22 Unknown Influenza Type B (PCR) Not Detected (NotDetected) 12/15/22 Unknown M. pneumoniae (PCR) Not Detected (NotDetected) 12/15/22 Unknown Parainfluenza 1 (PCR) Not Detected (NotDetected) 12/15/22 Unknown Parainfluenza 2 (PCR) Not Detected (NotDetected) 12/15/22 Unknown Parainfluenza 3 (PCR) Not Detected (NotDetected) 12/15/22 Unknown Parainfluenza 4 (PCR) Not Detected (NotDetected) 12/15/22 Unknown RSV (PCR) Not Detected (NotDetected) 12/15/22 Unknown Entero/Rhino (PCR) Not Detected (NotDetected) 12/15/22 Unknown Code Status & VTE Plan Code Status Full code PG Care Time/CCT Total # of Minutes Spent Total Time Spent with Patient: Total time spent is greater than 50% in coordination of care (as documented) at patient's floor/unit and/or counseling patient: Coding Level of Care Code 04006 INT INP/OBS CARE 3/75MIN Diagnoses Influenza A virus subtype H1 2009 pandemic strain present J10.1 Fatigue R53.83 Cough R05.9 Adult situational stress disorder F43.20 Female stress incontinence N39.3 Mjzlm-[id number] deficiency carrier Z14.8 Hypertension I10 Hypercholesterolemia E78.00 Chronic reflux esophagitis K21.0
--- NOTE | 2022-12-15 07:02 | XRay Report ---
XR chest 1V portable HISTORY: cough COMPARISON: Chest 02/11/2020. FINDINGS: Mild interstitial thickening, unchanged. This is likely chronic. No new focal lung consolid ations to suggest a pneumonia. No evidence for pulmonary edema. The heart remains mildly enlarged. Re trocardiac density consistent with a moderate hiatus hernia. This remains unchanged. A few bibasilar linear densities consistent with subsegmental atelectasis or scarring. IMPRESSION: No significant change compared to the prior study. No acute process. ACT 112: Negative or not required by law. Electronically signed by: Juan David Gastelum M.D. 12/15/2022 7:01 AM
--- NOTE | 2022-12-15 07:42 | Hospitalist Progress Note ---
Date of Service December 15, 2022 Assessment & Plan (1) Influenza A virus subtype H1 2009 pandemic strain present: (2) Hypertension: (3) Chronic reflux esophagitis: (4) Hypercholesterolemia: Plan Pt is a 77 yo female with a past medical history of HTN, GERD, and HLD who presents to the hospital on 12/14/22 for influenza. #Influenza A H1 2009 pandemic strain via PCR -Patient has had symptoms for over a week at this time - on Influenza isolation/droplet precautions - continue Robitussin-DM 10 mils p.o. every 6 hours as needed - continue Albuterol HFA 2 puffs 4 times daily, and every 2 hours as needed - continue Acetaminophen 650 mg by mouth every 6 hours as needed for mild pain or fever - continue Tramadol 50 mg by mouth every 4 hours as needed for moderate pain - continue dexamethasone 4 mg IV every 8 hours - will discontinue Azithromycin 500 mg IV daily, #Elevated troponin/hypertension - The patient will be admitted to telemetry for serial cardiac enzymes, serial EKG's, cardiac rhythm monitoring - Troponin initially 19.9-> 17.3 - Likely type II supply/demand mismatch - Hold losartan, triamterene HCTZ and potassium chloride - NSS + KCl 20 mEq at 80 mils per hour #Elevated TSH (7.28) - due to acute infectious process, no treatment indicated at this time #GERD Continue pantoprazole Code status: Full Admission and Anticipated Discharge Date Admission Date: December 15, 2022 Supervising Physician Co-Signing Physician Notes I personally examined the patient and verified all alberts points of history and exam, discussed case, and agree with decision making with Dr Maya feeling better than when she came in, still not great vitals noted nad ehent nc at mm breathing unlabored faint scattered rales good air entry flu - borderline hypoxia respiratory failure but fortunately ovearll stable and feeling better than yesterday. zithromax probably not helping much. steroids likely helping her feel better continue for now hopefully home soon Subjective Pt is a 77 yo female with a past medical history of HTN, GERD, and HLD who presents to the hospital on 12/14/22 for influenza. Today, pt states that today she still feels pretty sick. She states she mostly feels very fatigued, has no appetite, and overall feels general malaise. She also notes her voice has been hoarse with a sore throat. She denies chest pain or SOB. She notes this is the most sick she has ever felt from a flu. Otherwise, no further questions or complaints at this time. Review of Systems Review of Systems: As noted in HPI. Physical Exam Physical Exam: General:Alert and oriented, no acute distress but appears fatigued HEENT: Normocephalic, moist oral mucosa, Cardio: Regular rate and rhythm, Resp:Good air movement b/l, fine crackles noted in the lower and middle lungs GI: Soft and nontender, nondistended, bowel sounds active Skin: Pale, warm, dry Psych: Mood-affect congruence. Results & Data Results & Data Vital Signs (Past 12 Hours) Vital Signs Temp Pulse Resp BP Pulse Ox O2 Del Method O2 Flow Rate 12/15/22 06:30 68 29 H 90 12/15/22 06:30 94/55 L 12/15/22 06:00 73 18 92 12/15/22 06:00 95/49 L 12/15/22 05:30 70 24 93 12/15/22 05:30 95/62 L 12/15/22 05:00 73 37 H 114/58 L 94 12/15/22 04:30 69 23 112/66 94 12/15/22 04:00 37 C 12/15/22 05:00 89 L Room Air 0 12/15/22 04:40 70 12/15/22 04:00 71 25 H 110/59 L 90 12/15/22 03:30 68 21 112/65 96 12/15/22 03:00 70 23 128/60 96 12/15/22 02:30 69 21 95 12/15/22 02:30 115/76 12/15/22 02:10 75 23 94 12/15/22 02:00 73 22 96 12/15/22 02:00 122/70 12/15/22 01:50 75 21 95 12/15/22 01:40 73 19 95 12/15/22 01:30 74 20 96 12/15/22 01:30 113/74 12/15/22 01:20 79 31 H 95 12/15/22 01:10 76 23 96 12/15/22 01:00 75 21 94 12/15/22 01:00 104/66 12/15/22 00:50 78 23 90 12/15/22 00:40 77 31 H 94 12/15/22 00:30 79 18 91 12/15/22 00:30 113/70 12/15/22 00:23 81 25 H 93 12/15/22 00:23 101/73 12/15/22 00:55 90 Room Air, Nasal Cannula 0 12/15/22 00:23 81 12/15/22 00:20 37.7 C H 80 22 101/73 92 Room Air Resident Activity Tracking Resident Involvement: Resident Care Provided Care Provided: Adult Hospital Medicine
[2022-12-15] MEDS ORDERED: AZITHROMYCIN 500 MG in DEXTROSE 5% 250 ML IV SCH (09:00)
[2022-12-15] MEDS ORDERED: ONDANSETRON INJ 2 MG/ML 2 ML VIAL IV PRN (11:12)
[2022-12-15] MEDS ORDERED: ACETAMINOPHEN 325 MG TAB PO PRN (11:12)
[2022-12-15] MEDS ORDERED: PANTOprazole 40 MG TAB PO STA (11:22)
[2022-12-15] MEDS: dexAMETHasone 4 MG in SYRINGE 0 ML IV SCH ×2 (11:32→23:00)
[2022-12-15] MEDS: NSS + 20MEQ KCL 20 MEQ/1,000 ML BAG IV SCH (11:35)
[2022-12-15] MEDS: ALBUT/IPRATROP 3MG/0.5MG NEB 3 ML VIAL NEB SCH ×3 (12:08→20:05)
--- NOTE | 2022-12-15 15:45 | Electrocardiogram Report ---
Test Reason : Blood Pressure : / mmHG Vent. Rate : 078 BPM Atrial Rate : 078 BPM P-R Int : 148 ms QRS Dur : 072 ms QT Int : 364 ms P-R-T Axes : 072 041 046 degrees QTc Int : 414 ms Normal sinus rhythm Normal ECG When compared with ECG of 11-FEB-2020 20:07, Nonspecific T wave abnormality no longer evident in Anterior leads Confirmed by Anatoliy Krishnamurthy ([id number]) on 12/15/2022 3:44:44 PM Referred By: REFERRED SELF Confirmed By:Anatoliy Krishnamurthy
--- NOTE | 2022-12-15 18:10 | Billing Data ---
Date of Service December 15, 2022 Coding Level of Care Code 96179 SUB INP/OBS CARE MIN
[2022-12-15] MEDS: ATORVASTATIN 10 MG TAB PO SCH (23:02)
[2022-12-15] MEDS: guaiFENesin/DEXTROM SYRUP 200MG/20MG 10ML UDC PO PRN (23:08)
[2022-12-16] MEDS: NSS + 20MEQ KCL 20 MEQ/1,000 ML BAG IV SCH ×2 (02:44→13:26)
[2022-12-16 02:46] LABS: Albumin Level 3.3 gm/dl (3.4-5.0); BUN Creatinine Ratio 30.1 (10-20); Creatinine Clr Calc Pharmacy 36.3 ml/min; Est GFR (African American) 53.5 ml/min; Est GFR (Non-African American) 46.2 ml/min; Phosphorus 2.3 mg/dl (2.5-4.9); Potassium 3.5 mmol/L (3.5-5.1)
[2022-12-16] MEDS ORDERED: Nursing to Pharmacy Communication SCH (03:00)
[2022-12-16] MEDS: dexAMETHasone 4 MG in SYRINGE 0 ML IV SCH (05:45)
[2022-12-16] MEDS: ALBUT/IPRATROP 3MG/0.5MG NEB 3 ML VIAL NEB SCH ×4 (06:58→19:15)
--- NOTE | 2022-12-16 07:04 | Discharge Summary ---
Date of Service December 16, 2022 Admission HPI Per Admitting Provider The patient is a 77-year-old female with a past medical history including alpha 1 antitrypsin deficiency carrier, female stress incontinence, osteopenia, hypertension, hypercholesterolemia and chronic reflux esophagitis. She had gone on a trip to [place], where she went on the bus drive, and was exposed to a number of people with similar symptoms that she has as noted above. In the emergency department at [facility] this morning, she tested positive for nasal influenza A H1 2009 via PCR. From the ED she received famotidine IV, Tessalon Perles, Tylenol 1 g IV and was started on normal saline at 1050 mils per hour. I have added dexamethasone 6 mg IV and Robitussin-DM 10 mL now, and will continue during admission. Discharge Exam General:Alert and oriented, no acute distress but appears fatigued HEENT: Normocephalic, moist oral mucosa, Cardio: Regular rate and rhythm, Resp:Good air movement b/l, fine crackles noted in the lower and middle lungs GI: Soft and nontender, nondistended, bowel sounds active Skin: Pale, warm, dry Psych: Mood-affect congruence. Discharge Data Allergies Allergy/AdvReac Type Severity Reaction Status Date / Time ciprofloxacin Allergy Unknown Unknown Verified 09/14/22 11:04 codeine AdvReac Mild VOMITING Verified 09/14/22 11:04 Consultations 12/15/22 05:30 ED Decision to Admit Stat Hospital Course (1) Influenza A virus subtype H1 2009 pandemic strain present: (2) Hypertension: (3) Chronic reflux esophagitis: (4) Hypercholesterolemia: Plan Pt is a 77 yo female with a past medical history of HTN, GERD, and HLD who pr esents to the hospital on 12/14/22 for influenza. #Influenza A H1 2009 pandemic strain via PCR -Patient has had symptoms for over a week at this time - on Influenza isolation/droplet precautions - continue Robitussin-DM 10 mils p.o. every 6 hours as needed - continue Albuterol HFA 2 puffs 4 times daily, and every 2 hours as needed - continue Acetaminophen 650 mg by mouth every 6 hours as needed for mild pain or fever - continue Tramadol 50 mg by mouth every 4 hours as needed for moderate pain - continue dexamethasone 4 mg IV every 8 hours - will discontinue Azithromycin 500 mg IV daily, #Elevated troponin/hypertension - The patient will be admitted to telemetry for serial cardiac enzymes, serial EKG's, cardiac rhythm monitoring - Troponin initially 19.9-> 17.3 - Likely type II supply/demand mismatch - Hold losartan, triamterene HCTZ and potassium chloride - NSS + KCl 20 mEq at 80 mils per hour #Elevated TSH (7.28) - due to acute infectious process, no treatment indicated at this time #GERD Continue pantoprazole Code status: Full Discharge Plan Discharge Items Reason For Visit: INFLUENZA A, ELEVATED TROPONIN Follow-up/Referrals: Dimitri Pandya III, ROSEANN [Primary Care Provider] - Medications and DC Order Prescriptions: No Action atorvastatin 10 mg tablet 10 mg PO QPM Qty: 90 1RF losartan 50 mg tablet 50 mg PO DAILY Qty: 90 3RF triamterene-hydrochlorothiazid 37.5-25 mg capsule 1 cap PO QAM Qty: 90 3RF pantoprazole 40 mg tablet,delayed release (DR/EC) 40 mg PO DAILY Qty: 90 1RF Adacel(Tdap Adolesn/Adult)(PF) 2 Lf-(2.5-5-3-5 mcg)-5Lf/0.5 mL syringe 0.5 ml IM ONCE Qty: 0.5 0RF Shingrix (PF) 50 mcg/0.5 mL suspension for reconstitution 0.5 ml IM ONCE Qty: 1 1RF Rx Instructions: hasnt got it yet omega-3 fatty acids [Fish Oil Concentrate] 1,000 mg capsule 1,000 mg PO TID Qty: 90 12RF potassium chloride 10 mEq capsule, extended release 10 meq PO DAILY Qty: 90 3RF metronidazole 250 mg tablet 250 mg PO TID 10 Days Qty: 30 0RF meclizine 25 mg tablet 25 mg PO TID PRN (Reason: dizziness) Qty: 15 0RF Admission Data Admit Date/Time: 12/15/22 06:15 Attending Provider: Jabier Che Admit Provider: Greg Cooper Primary Care Provider: Dimitri Pandya III Other Providers: Greg Cooper
[2022-12-16] MEDS: PANTOprazole 40 MG TAB PO SCH (08:00)
--- NOTE | 2022-12-16 10:43 | Hospitalist Progress Note ---
Date of Service December 16, 2022 Assessment & Plan (1) Influenza A virus subtype H1 2009 pandemic strain present: (2) Hypertension: (3) Chronic reflux esophagitis: (4) Hypercholesterolemia: Plan Pt is a 77 yo female with a past medical history of HTN, GERD, and HLD who presents to the hospital on 12/14/22 for influenza. Due to oxygen need and due to family concerns about going home with her requiring oxygen, pt to stay another night and will reassess tomorrow for possible discharge. Steroids will be downgraded to daily. #Influenza A H1 2009 pandemic strain via PCR -Patient has had symptoms for over a week at this time - on Influenza isolation/droplet precautions - continue Robitussin-DM 10 mils p.o. every 6 hours as needed - continue Albuterol HFA 2 puffs 4 times daily, and every 2 hours as needed - continue Acetaminophen 650 mg by mouth every 6 hours as needed for mild pain or fever - continue Tramadol 50 mg by mouth every 4 hours as needed for moderate pain - continue dexamethasone 4 mg IV every 8 hours -> downgraded to daily - pt weaned off oxygen, but nursing staff noted her saturations dropped to mid 80s so she was put back on #Elevated troponin/hypertension - The patient will be admitted to telemetry for serial cardiac enzymes, serial EKG's, cardiac rhythm monitoring - Troponin initially 19.9-> 17.3 - Likely type II supply/demand mismatch - Hold losartan, triamterene HCTZ and potassium chloride - NSS + KCl 20 mEq at 80 mils per hour #Elevated TSH (7.28) - due to acute infectious process, no treatment indicated at this time #GERD Continue pantoprazole Code status: Full Admission and Anticipated Discharge Date Admission Date: December 15, 2022 Supervising Physician Co-Signing Physician Notes I personally examined the patient and verified all alberts points of history and exam, discussed case, and agree with decision making with Dr Maya feeling better than when she came in, still not great, still on and off O2 vitals noted nad ehent nc at mm breathing unlabored faint scattered rales less than yesterday good air entry flu - borderline hypoxia respiratory failure but fortunately ovearall stable. waen steroids, try to wean o2 hopefully home soon Subjective Pt is a 77 yo female with a past medical history of HTN, GERD, and HLD who presents to the hospital on 12/14/22 for influenza. Today, pt states she feels like she has been starting to get better and is clearing up a bit. She has been tolerating diet well and denies chest pain or SOB. Still notes that she feels pretty sick but that she is definitely improved from yesterday. No questions or complaints at this time. Review of Systems Review of Systems: As noted in HPI. Physical Exam Physical Exam: General:Alert and oriented, no acute distress, HEENT: Normocephalic, moist oral mucosa, Cardio: Regular rate and rhythm, Resp:Fine crackles in the lower lung snow heard, improved from yesterday GI: Soft and nontender, nondistended, bowel sounds active Skin: Warm, pink, dry, Psych: Mood-affect congruence. Results & Data Results & Data Vital Signs (Past 12 Hours) Vital Signs Temp Pulse Resp BP Pulse Ox O2 Del Method O2 Flow Rate 12/16/22 10:18 57 L 18 91 Nasal Cannula 1 12/16/22 10:00 90 Nasal Cannula 2 12/16/22 09:55 86 L Room Air 12/16/22 08:10 Room Air 12/16/22 08:00 92 Room Air 12/16/22 07:38 36.5 C 82 16 101/62 93 Nasal Cannula 1 12/16/22 06:58 54 L 18 94 Nasal Cannula 1 Resident Activity Tracking Resident Involvement: Resident Care Provided Care Provided: Adult Hospital Medicine
--- NOTE | 2022-12-16 18:50 | Billing Data ---
Date of Service December 16, 2022 Coding Level of Care Code 23213 SUB INP/OBS CARE
[2022-12-16] MEDS: ATORVASTATIN 10 MG TAB PO SCH (20:47)
[2022-12-17] MEDS: guaiFENesin/DEXTROM SYRUP 200MG/20MG 10ML UDC PO PRN (02:06)
[2022-12-17] MEDS: NSS + 20MEQ KCL 20 MEQ/1,000 ML BAG IV SCH ×2 (02:06→14:31)
[2022-12-17 07:05] LABS: Calcium 7.8 mg/dl (8.6-10.3); Potassium 4.4 mmol/L (3.5-5.1)
[2022-12-17 07:12] LABS: BUN Creatinine Ratio 31.3 (10-20); Creatinine Clr Calc Pharmacy 36.6 ml/min; Est GFR (African American) 54.1 ml/min; Est GFR (Non-African American) 46.7 ml/min; Phosphorus 1.4 mg/dl (2.5-4.9)
[2022-12-17] MEDS ORDERED: POTASSIUM PHOS 3 MMOL/1 ML INFUSION IV STA (07:18)
--- NOTE | 2022-12-17 07:26 | Hospitalist Progress Note ---
Date of Service December 17, 2022 Assessment & Plan (1) Influenza A virus subtype H1 2009 pandemic strain present: (2) Hypertension: (3) Chronic reflux esophagitis: (4) Hypercholesterolemia: Plan Pt is a 77 yo female with a past medical history of HTN, GERD, and HLD who presents to the hospital on 12/14/22 for influenza. Patient has remained afebrile. Today's vital signs are stable. She is currently on nasal cannula 3 lpm due to desaturation to the mid-80s when she is breathing at room air. Some dry coughing also present, but no respiratory distress. Steroids downgraded to be given daily. Labs showing electrolytes within reference range. She has hypophosphatemia which will be replaced with potassium phosphate 15 mmol. #Influenza A H1 2009 pandemic strain via PCR - Patient has had symptoms for over a week at this time - on Influenza isolation/droplet precautions - continue Robitussin-DM 10 mils p.o. every 6 hours as needed - continue Albuterol HFA 2 puffs 4 times daily, and every 2 hours as needed - continue Acetaminophen 650 mg by mouth every 6 hours as needed for mild pain or fever - continue Tramadol 50 mg by mouth every 4 hours as needed for moderate pain - continue dexamethasone 4 mg IV every 8 hours -> downgraded to daily - Attempted to wean patient off oxygen, but saturation dropped to mid 80s, so cannula was put back on at 3 lpm * Will order CXR to assess current status and to r/o pulmonary edema as a cause #Elevated troponin/hypertension - The patient will be admitted to telemetry for serial cardiac enzymes, serial EKG's, cardiac rhythm monitoring - Troponin initially 19.9-> 17.3 - Likely type II supply/demand mismatch - Hold losartan, triamterene HCTZ and potassium chloride - NSS + KCl 20 mEq at 80 mils per hour #Elevated TSH (7.28) - due to acute infectious process, no treatment indicated at this time #GERD Continue pantoprazole Code status: Full Admission and Anticipated Discharge Date Admission Date: December 15, 2022 Supervising Physician Co-Signing Physician Notes I personally examined the patient and verified all alberts points of history and exam, discussed case, and agree with decision making with Dr Boles Feels better but still not able to wean [id number] every time it is discontinued vitals noted nad heent nc at mm breathing unlabored faint scattered rales less than yesterday good air entry flu - seems to be improving, refractory hypoxia was a bit puzzling, but follow- up chest x-ray consistent with mild pulmonary vascular congestionI suspect she has a little bit of pulmonary edema, probably just diastolic acute failure from being ill with the flu, but obviously check an echocardiogram for completeness. To be able to get her off the [id number] mg of Lasix and hopefully will be other wean. Wean steroids further. add lovenox DVT proph Subjective Pt is a 77 yo female with a past medical history of HTN, GERD, and HLD who presents to the hospital on 12/14/22 for influenza. Today, the patient indicates she feels better. She has had some coughing that has improved when compared with past days and she has not felt fevers, chills, SOB, chest pain, or any other symptom. She is tolerating her diet well. Review of Systems Review of Systems: As noted in HPI. Physical Exam Physical Exam: General:Alert and oriented, afebrile, no acute distress HEENT: Normocephalic, moist oral mucosa Cardio: Regular rate and rhythm Resp:Mild fine crackles in the lower lung snow, no accessory muscle use, symmetric chest expansion with breaths, no respiratory distress GI: Soft and nontender, nondistended, bowel sounds active Skin: Warm, pink, dry Psych: Mood-affect congruence. Results & Data Results & Data Vital Signs (Past 12 Hours) Vital Signs Temp Pulse Resp BP Pulse Ox O2 Del Method O2 Flow Rate 12/16/22 23:58 36.7 C 91 H 18 128/78 92 Room Air 12/16/22 20:50 92 Room Air 12/16/22 20:00 Nasal Cannula 2
[2022-12-17] MEDS: ALBUT/IPRATROP 3MG/0.5MG NEB 3 ML VIAL NEB SCH ×4 (07:32→19:22)
[2022-12-17] MEDS ORDERED: POTASSIUM PHOSPHATE 15 MMOL in SODIUM CHLORIDE 0.9% 250 ML IV ONE (07:45)
[2022-12-17] MEDS: PANTOprazole 40 MG TAB PO SCH (08:30)
[2022-12-17] MEDS ORDERED: dexAMETHasone 4 MG in SYRINGE 0 ML IV SCH (09:00)
--- NOTE | 2022-12-17 16:50 | XRay Report ---
XR chest 2V PA/lateral HISTORY: 77 years-old Female persistent hypoxia, recent flu acute hypoxia COMPARISON: 12/15/2022 TECHNIQUE: AP view the chest FINDINGS: Linear subsegmental bibasilar densities with trace pleural effusions. Cardiomegaly. Hiatal hernia. No pneumothorax or overt pulmonary edema. Bones appear grossly intact. IMPRESSION: 1. Cardiomegaly without overt pulmonary edema. 2. Suspected trace pleural effusions with mild bibasilar opacities favoring atelectasis. 3. Hiatal hernia. ACT 112: Negative or not required by law. The above report was generated using voice recognition software. It may contain grammatical, syntax o r spelling errors. Electronically signed by: Phu Lassiter M.D. 12/17/2022 4:48 PM
[2022-12-17] MEDS ORDERED: FUROSEMIDE 40 MG TAB PO ONE (17:35)
--- NOTE | 2022-12-17 18:23 | Billing Data ---
Date of Service December 17, 2022 Coding Level of Care Code 61332 SUB INP/OBS CARE MIN
[2022-12-17] MEDS: ATORVASTATIN 10 MG TAB PO SCH (22:13)
[2022-12-18 07:08] LABS: BUN Creatinine Ratio 27.2 (10-20); Est GFR (Non-African American) 45.7 ml/min; Potassium 3.7 mmol/L (3.5-5.1)
[2022-12-18 07:53] LABS: Albumin Level 3.1 gm/dl (3.4-5.0); Magnesium 1.7 mg/dl (1.7-2.4); Phosphorus 1.5 mg/dl (2.5-4.9)
[2022-12-18] MEDS: ALBUT/IPRATROP 3MG/0.5MG NEB 3 ML VIAL NEB SCH ×3 (07:54→14:16)
[2022-12-18] MEDS ORDERED: ENOXAPARIN INJ 40 MG/0.4 ML SYR SQ SCH (09:00)
--- NOTE | 2022-12-18 09:14 | Hospitalist Progress Note ---
Date of Service December 18, 2022 Assessment & Plan (1) Influenza A virus subtype H1 2009 pandemic strain present: (2) Hypertension: (3) Chronic reflux esophagitis: (4) Hypercholesterolemia: Plan Pt is a 77 yo female with a past medical history of HTN, GERD, and HLD who presents to the hospital on 12/14/22 for influenza. Patient has remained afebrile. Today's vital signs are stable. Her oxygen saturation is now at 94% at room air. Steroids currently being given daily. Her electrolytes have remained within the reference range and her renal markers are adequate. Her phosphate has remained decreased (today at 1.5) despite supplementation yesterday, which can be attributed to the fact that she is currently ill and has not been able to eat very well. Nevertheless, will order PO phosphate replacement today. #Influenza A H1 2009 pandemic strain via PCR - Patient has had symptoms for over a week at this time - on Influenza isolation/droplet precautions - continue Robitussin-DM 10 mils p.o. every 6 hours as needed - continue Albuterol HFA 2 puffs 4 times daily, and every 2 hours as needed - continue Acetaminophen 650 mg by mouth every 6 hours as needed for mild pain or fever - continue Tramadol 50 mg by mouth every 4 hours as needed for moderate pain - continue dexamethasone 4 mg IV every 8 hours -> downgraded to daily - Attempted to wean patient off oxygen, but saturation dropped to mid 80s, so cannula was put back on at 3 lpm (12/17/2022) * CXR showed mild pleural effusions. Lasix 40mg PO was given with improvement of her saturation at room air (12/18/2022). - Pending cardiac ECHO (TTE) to r/o cardiac cause to her pulmonary congestion seen on CXR: pending results #Elevated troponin/hypertension - The patient will be admitted to telemetry for serial cardiac enzymes, serial EKG's, cardiac rhythm monitoring - Troponin initially 19.9-> 17.3 - Likely type II supply/demand mismatch - Hold losartan, triamterene HCTZ and potassium chloride - NSS + KCl 20 mEq at 80 mils per hour #Elevated TSH (7.28) - due to acute infectious process, no treatment indicated at this time #GERD Continue pantoprazole Code status: Full Admission and Anticipated Discharge Date Admission Date: December 15, 2022 Subjective Pt is a 77 yo female with a past medical history of HTN, GERD, and HLD who presents to the hospital on 12/14/22 for influenza. Today, the patient indicates she feels better. She feels like she can breathe easier and is able to walk without feeling very short of breath. She has no conversational dyspnea. She has not felt fevers, chills, SOB, chest pain, or any other symptom. She is tolerating her diet well, but states she has not been able to eat some meats and other foods given to her during her stay because they are tough for her to chew. Review of Systems Review of Systems: As noted in HPI. Physical Exam Physical Exam: General:Alert and oriented, afebrile, no acute distress HEENT: Normocephalic, moist oral mucosa Cardio: Regular rate and rhythm Resp:Mild fine crackles in the b/l lower lung snow, no accessory muscle use, symmetric chest expansion with breaths, no respiratory distress GI: Soft and nontender, nondistended, bowel sounds active Skin: Warm, pink, dry Psych: Mood-affect congruence. Results & Data Results & Data Vital Signs (Past 12 Hours) Vital Signs Temp Pulse Resp BP Pulse Ox O2 Del Method 12/18/22 08:20 36.7 C 64 20 131/78 95 Room Air 12/18/22 07:55 86 16 94 Room Air 12/18/22 04:17 36.6 C 73 18 150/86 H 94 Room Air 12/18/22 00:50 36.5 C 75 18 143/79 H 94 Room Air Resident Activity Tracking Resident Involvement: Resident Care Provided Care Provided: Adult Hospital Medicine
[2022-12-18] MEDS: PANTOprazole 40 MG TAB PO SCH (09:25)
--- NOTE | 2022-12-18 11:54 | XCELERA ---
[id number] [id number]
[2022-12-18] MEDS ORDERED: POTASSIUM PHOS 3 MMOL/1 ML INFUSION IV STA (12:46)
[2022-12-18] MEDS ORDERED: POT PHOSPHATE MONOBASIC W/ SOD TAB PO SCH (13:00)
[2022-12-18] MEDS ORDERED: POTASSIUM PHOSPHATE 21 MMOL in SODIUM CHLORIDE 0.9% 500 ML IV ONE (13:30)
--- NOTE | 2022-12-18 14:07 | Discharge Summary ---
Date of Service December 18, 2022 Admission HPI Per Admitting Provider Chief Complaint: The patient presents to the emergency department via EMS with complaint of 1 week of cough, shortness of breath, headache, generalized fatigue and weakness after returning from a trip to [place], where she was exposed to a number of sick people on the trip Primary Care Provider: Dimitri Pandya III, ROSEANN The patient is a 77-year-old female with a past medical history including alpha 1 antitrypsin deficiency carrier, female stress incontinence, osteopenia, hypertension, hypercholesterolemia and chronic reflux esophagitis. She had gone on a trip to [place], where she went on the bus drive, and was exposed to a number of people with similar symptoms that she has as noted above. In the emergency department at [facility] this morning, she tested positive for nasal influenza A H1 2008 via PCR. From the ED she received famotidine IV, Tessalon Perles, Tylenol 1 g IV and was started on normal saline at 1050 mils per hour. I have added dexamethasone 6 mg IV and Robitussin-DM 10 mL now, and will continue during admission. Admission Exam Per Admitting Provider The patient is awake, alert and oriented 3, looks fatigued and frequent harsh cough, normocephalic and atraumatic, lying in bed and in mild acute distress. HEENT--PERRL, EOMI, mucous membranes and oropharynx dry. Neck--supple. No JVD. No bruits. Thyroid normal, trachea midline, no adenopathy. Heart--normal S1 and S2. No murmurs, rubs or gallops. Lungs--coarse breath sounds bilaterally, right greater than left. Mild respiratory distress, no accessory muscle use. Abdomen--normal bowel sounds and soft. Nontender. Nondistended, no hernias or masses, no organomegaly. Extremities--no cyanosis or clubbing. No edema. Dermatologic--normal skin turgor, normal color, no abnormal lymph nodes, no rash. Neurologic--cranial nerves II through XII grossly intact. Rheumatologic--normal range of motion. Psychiatric--normal affect. Principal Diagnosis Influenza Discharge Exam Constitutional WD/WN, vitals as above Eyes PERRL, conjunctivae normal, anicteric sclerae Neck trachea midline, no thyromegaly Respiratory normal respiratory effort; no respiratory distress and no cough Mild fine crackles heard in bilateral lung bases that are improved in comparison with yesterday's exam Cardiovascular RRR, no murmur, no edema Chest (Breasts) normal inspection/palpation of breasts Gastrointestinal (Abdomen) normal bowel sounds, soft, nontender, no hepatosplenomegaly Musculoskeletal no cyanosis or clubbing, extremities motor strength 5/5 Skin no rashes, warm and dry Neurologic awake Psychiatric A+Ox3, euthymic affect Discharge Data Allergies Allergy/AdvReac Type Severity Reaction Status Date / Time ciprofloxacin Allergy Unknown Unknown Verified 09/14/22 11:04 codeine AdvReac Mild VOMITING Verified 09/14/22 11:04 Consultations 12/15/22 05:30 ED Decision to Admit Stat Ordered Studies [place], [place] [phone] XRay Report Patient:CONCHA GRAHAM Admit Date:12/15/22 MR#:[id number] Address1:[address] [place] [address] Acct ID:[id number] Address2: Date:1945 [facility] Zip:[place] [address] Age:77 Location:ED Sex:F Room/Bed: Att Phy: Diagnosis:COUGH Yahaira Phy:Dimitri Pandya, WADE, ROSEANN Service Date:12/15/22 [facility] Phy: Interpreting Phy:Juan David Gastelum MDAdmit Phy: Ordering Phy:Jennifer Carrillo DO cc: ~ XR chest 1V portable HISTORY: cough COMPARISON: Chest 02/11/2020. FINDINGS: Mild interstitial thickening, unchanged. This is likely chronic. No new focal lung consolidations to suggest a pneumonia. No evidence for pulmonary edema. The heart remains mildly enlarged. Retrocardiac density consistent with a moderate hiatus hernia. This remains unchanged. A few bibasilar linear densities consistent with subsegmental atelectasis or scarring. IMPRESSION: No significant change compared to the prior study. No acute process. ACT 112: Negative or not required by law. Electronically signed by: Juan David Gastelum M.D. 12/15/2022 7:01 AM [place], [place] [phone] XRay Report Patient:CONCHA GRAHAM Admit Date:12/15/22 MR#:[id number] Address1:[address] [place] [address] Acct ID:[id number] Address2: Date:1945 [facility] Zip:[place] [address] Age:77 Location:2N Sex:F Room/Bed:N2-2 Att Phy:Jabier Che D.O. Diagnosis:INFLUENZA A, ELEVATED TROPONIN Yahaira Phy:Dimitri Pandya III, ROSEANN Service Date:12/17/22 Fam Phy: Interpreting Phy:Phu LassiterAdmit Phy:Greg Cooper MD Ordering Phy:Jabier Che D.O. cc: ~ XR chest 2V PA/lateral HISTORY: 77 years-old Female persistent hypoxia, recent flu acute hypoxia COMPARISON: 12/15/2022 TECHNIQUE: AP view the chest FINDINGS: Linear subsegmental bibasilar densities with trace pleural effusions. Cardiomegaly. Hiatal hernia. No pneumothorax or overt pulmonary edema. Bones appear grossly intact. IMPRESSION: 1. Cardiomegaly without overt pulmonary edema. 2. Suspected trace pleural effusions with mild bibasilar opacities favoring atelectasis. 3. Hiatal hernia. ACT 112: Negative or not required by law. The above report was generated using voice recognition software. It may contain grammatical, syntax or spelling errors. Electronically signed by: Phu Lassiter M.D. 12/17/2022 4:48 PM Hospital Course (1) Influenza A virus subtype H1 2009 pandemic strain present: (2) Hypertension: (3) Chronic reflux esophagitis: (4) Hypercholesterolemia: Plan Patient is a 77 y/o female with PMHx of Hypertension, GERD, Hyperlipidemia who presented to the hospital on 12/14/2022 due to Influenza #Influenza A H1 2009 pandemic strain via PCR Patient has had symptoms for over a week when she arrived at the hospital. After testing for Influenza A was positive, she was placed on isolation/droplet precautions. The patient was admitted to telemetry for serial cardiac enzymes, serial EKG's, cardiac rhythm monitoring due to an elevated Troponin level of 19.9. This later on decreased to 17.3. This is thought to be the result of a supply/demand mismatch due to insufficient oxygenation of myocytes as a result of her initial respiratory symptoms. As management, she was being given the following: Robitussin-DM 10 mils p.o. every 6 hours as needed Albuterol HFA 2 puffs 4 times daily, and every 2 hours as needed Acetaminophen 650 mg by mouth every 6 hours as needed for mild pain or fever Tramadol 50 mg by mouth every 4 hours as needed for moderate pain Dexamethasone 4 mg IV every 8 hours -> downgraded to daily On the second day of her hospital stay, we attempted to wean the patient off oxygen by nasal cannula, but her oxygen saturation dropped to the mid 80s, and so cannula was put back on at 3 lpm with successful stabilization of her oxygen saturation at approximately 92%. A Chest X Ray ordered due to these episodes of desaturation showed mild pleural effusions. At this time, Lasix 40 mg was given orally as management. Today, her oxygenation improved at room air and was between 94 and 95% with no signs of respiratory distress, exertional dyspnea, or dyspnea with speech. A Transthoracic echocardiogram was ordered as well to rule out a cardiogenic cause to her pleural effusions, which showed normal left and right ventricular pressure, and grade II diastolic dysfunction consistent with an elevated left atrial pressure, but this likely had no relation to her pleural effusions. Today, patient has remained afebrile and her vital signs are stable. Her oxygenation at room air is now at 94%. She has been able to ambulate without exertional dyspnea and is able to converse with no shortness of breath. Her electrolytes and renal function have remained within normal limits save for her phosphate which was decreased, likely due to her lack of proper eating hospital food which she states has been tough for her to chew. Oral supplements of ph osphate were given as management, but better control is expected once she increases her food intake at home. Patient is now clinically improved and is stable to be discharged. Total Time Total Time Spent Total Time Spent (In Minutes): <30 Discharge Plan Discharge Items Patient Disposition: Home - Self-Care Reason For Visit: INFLUENZA A, ELEVATED TROPONIN Discharge Diagnosis: Influenza A Activity: Per Instructions section Non-emergency contact: Primary Care Provider Call non-emergency contact if: your symptoms worsen and your temperature is above 101 Follow-up/Referrals: Dimitri Pandya III, CRNP [Primary Care Provider] - 12/26/22 4:00 pm Diet: Heart Healthy Addtl Attending Provider Instructions: You were admitted to the hospital for Influenza A. You were treated with Robitussin-DM, Albuterol HFA, Acetaminophen as needed for pain and/or fever control, Tramadol as needed for moderate pain control, and dexamethasone. A discharge summary will be sent to your primary care physician to ensure continuity of care. Please bring this discharge summary with you to your next o ffice appointment so that your provider can review it at that time. Follow-up appointments: Make a follow-up appointment with your PCP within the next week. It is very important that you follow up with them shortly after discharge from the hospital. Keep all your follow-up appointments as already scheduled. If you cannot make an appointment, notify your provider. Medications: Your medication list has been reviewed and reconciled upon discharge to ensure accuracy and continuity of care. An updated list of all your medications is included with your hospital discharge paperwork. Please review this list closely, and make note of any changes. If you have any issues filling your prescriptions, please call [phone] and ask to leave a message for Dr. Boles. Take your medications as instructed; do not skip a dose of your medicines. Make sure all of your doctors know every medicine you are taking (including jtla-ijt-[id number] medicines, vitamins, and supplements). Call your primary care provider before taking any new medicines (including over- the-counter medicines, vitamins, and supplements), because some of these may interact with your current medications, or may make your symptoms worse. Tell your primary care provider if you cannot afford your medications. CONTACT YOUR PRIMARY CARE PROVIDER if you experience any of the following: Worsening of symptoms Fever, chills, or fatigue Difficulty following your treatment plan, or difficulty taking medications CALL 911 OR GO TO THE EMERGENCY DEPARTMENT if you experience any of the following: Sudden, severe abdominal pain or nausea/vomiting Severe chest pain, or chest pain that radiates (moves) to your jaw or arm Sudden, severe shortness of breath or difficulty breathing Thank you for allowing us to participate in your care. Pending Studies at Discharge: No Stand-Alone Forms: My [facility] [email or web address], Smoking Cessation Medications and DC Order Prescriptions: Continued atorvastatin 10 mg tablet 10 mg PO QPM Qty: 90 1RF losartan 50 mg tablet 50 mg PO DAILY Qty: 90 3RF triamterene-hydrochlorothiazid 37.5-25 mg capsule 1 cap PO QAM Qty: 90 3RF pantoprazole 40 mg tablet,delayed release (DR/EC) 40 mg PO DAILY Qty: 90 1RF Adacel(Tdap Adolesn/Adult)(PF) 2 Lf-(2.5-5-3-5 mcg)-5Lf/0.5 mL syringe 0.5 ml IM ONCE Qty: 0.5 0RF Shingrix (PF) 50 mcg/0.5 mL suspension for reconstitution 0.5 ml IM ONCE Qty: 1 1RF Rx Instructions: hasnt got it yet omega-3 fatty acids [Fish Oil Concentrate] 1,000 mg capsule 1,000 mg PO TID Qty: 90 12RF potassium chloride 10 mEq capsule, extended release 10 meq PO DAILY Qty: 90 3RF metronidazole 250 mg tablet 250 mg PO TID 10 Days Qty: 30 0RF meclizine 25 mg tablet 25 mg PO TID PRN (Reason: dizziness) Qty: 15 0RF Discharge Orders: Discharge Order (Routine); Ordered 12/18/22 Ordered By: Carolyn Siegel/Other Patient Handouts: Dehydration, The Flu (Influenza) Admission Data Admit Date/Time: 12/15/22 06:15 Attending Provider: Jabier Che Admit Provider: Greg Cooper Primary Care Provider: Dimitri Pandya III Other Providers: Greg Cooper Other Interventions: Discharge Summary Assessment (RN) Last Done: 12/18/22 14:45 Supervising Physician Co-Signing Physician Notes I personally examined the patient and verified all alberts points of history and exam, discussed case, and agree with decision making with Dr Boles feels better feels up to going home some GUTHRIE but no desaturations vitals noted nad heent nc at mm breathing unlabored no accessory muscles exam otherwise as above, off O2 since last PM flu - improving, refractory hypoxia was a bit puzzling, but follow-up chest x- ray consistent with mild pulmonary vascular congestionimproved danika mills, echo noted, probably just diastolic acute failure from being ill with the flu, but obviously check an echocardiogram for completeness. safe for home, discussed will take a while to feel better used lovenox for DVT proph Resident Activity Tracking Resident Involvement: Resident Care Provided Care Provided: Adult Hospital Medicine
--- NOTE | 2022-12-18 18:28 | Billing Data ---
Date of Service December 18, 2022 Coding Level of Care Code 17561 IN/OBS DISCH 30 MIN/LESS
--- NOTE | 2022-12-21 15:50 | Coding Query ---
CODING QUERY To promote full compliance with coding requirements relating to patient care, provider participation is requested in all cases of p 3 armament/ordnance ima technician uncertainty. Please assist us with the question(s) below: Coding Question(s): Dr. Che, Documentation in the medical record indicates that this patient has been admitted with or diagnosed as having "Likely type II supply/demand mismatch." The following is also documented in the medical record: Serial troponin levels [list all] = 12/15: Troponin initially 19.9 with follow-up later in the day of 17.3. Treatment/Monitoring: The patient was admitted to telemetry for serial cardiac enzymes, serial EKG's, cardiac rhythm monitoring EKG showing: Normal sinus rhythm. Normal ECG. Based on your medical judgment, can you further clarify in the progress notes which, if any, of the following this condition is intended to indicate: ( ) Type 2 OR ( ) Type 1 OR (NSTEMI) ( ) Demand ischemia (x ) Supply/demand mismatch only - very mild ( ) Elevated troponin only ( ) Other, please specify: ( ) None of the above / Not applicable In responding to this request, please exercise your independent professional judgment. The fact that a question is asked does not imply that any particular diagnosis is desired or expected. Physician's Response(s): Thank you for your time, XIN Gil, [facility]
== END 2022-12-18 15:28 | disposition home or self-care (01) | DRG 193 ==
LOC: ED 00:16 → SUATTDRO 06:15 → EDINP 06:15 → 2N 19:30